=== PATIENT | male | born 1970 | race Caucasian/White ===

== ENCOUNTER 2023-04-02 09:49 | Day surgery (SDC) | payer BC ==
[2023-03-29 11:42] VITALS: BMI 23.2
[2023-04-02 10:12] VITALS: RESP 20
[2023-04-02] MEDS ORDERED: PROPOFOL 20 ML ONE (11:31)
[2023-04-02 12:11] VITALS: TEMP 97.7
[2023-04-02 12:36] VITALS: BP 112/82; PULSE 80
== END 2023-04-02 12:30 | disposition home or self-care (01) ==
LOC: FASU-ENDO 09:49
PROVIDERS: ATTEND Internal Medicine Gastroenterology
PROC: 0DBL8ZX Excision of Transverse Colon, Via Natural or Artificial Opening Endoscopic, Diagnostic (ICD-10-PCS; principal; 2023-04-02 11:34)
DX: Z12.11 Encounter for screening for malignant neoplasm of colon (principal); D12.3 Benign neoplasm of transverse colon; K57.30 Diverticulosis of large intestine without perforation or abscess without bleeding
CPT/HCPCS: 88305-TC